=== PATIENT | female | born 1985 | race Caucasian/White ===

== ENCOUNTER 2025-04-02 13:40 | Emergency (ER) | payer BC ==
[~2025-04-02] VITALS: Ht 165.1 cm; Wt 97.7 kg
[2025-04-02 13:50] VITALS: BP 179/106; PULSE 114; RESP 16; TEMP 98.5; O2SAT 98
--- NOTE | 2025-04-02 14:18 | Physician Documentation ---
History of Present Illness ~ Chief Complaint: Rash Stated Complaint: RASH Time Seen by MD: 14:02 OK to notify your PCP?: Yes Source: patient Mode of Arrival: POV Exam Limitations: no limitations HPI 39-year-old female with a itchy rash which started 30 minutes after holding a robe to purchase over her left forearm while she was shopping at [email or web address] 2 days ago. She has a rash also left lower leg where the strap of the road touched as well as the right wrist. She tried rinsing the rash with technu with no relief. Today she noticed that her eye was starting to become red and itching on the left side in his worry that this histamine reaction is spreading. She does take Singulair daily. She states that she is at a similar rash when exposed to poison oak. Requesting prednsone pack. Medication Reconciliation Allergies: Coded Allergies: mupirocin (Verified Allergy, Unknown, 04/02/25) Review of Systems All Other Systems at this time: Reviewed and Negative Physical Exam Vital Signs: RN Vital Signs have been reviewed: Yes, Temperature: 98.5, Source: Temporal, Heart Rate: 114, Respiratory Rate: 16, BP: 179/106, Pulse Oximetry: 98, Weight: 97.730 Oxygen Flow Rate: 0 Pulse Oximetry Reflects: adequate oxygenation Physical Exam General: Alert, no apparent distress. HEENT: PERRL, EOMI, no injection, moist mucous membranes. Neck: Full range of motion. Respiratory: Lungs clear, no respiratory distress. Chest: No accessory muscle use. Cardiovascular: Regular rate and rhythm, no murmurs. Gastrointestinal: Soft, nontender, nondistended. Bowels sounds present. Extremities: Normal range of motion, no deformity. Neurologic: Oriented x4. Psychiatric: Normal mood and affect. Skin: Normal color, warm and dry. Erythematous maculopapular rash to left forearm, right wrist and left evans, no blistering seen. Progress Results/Orders Reviewed/noted all lab results: Yes Results/Orders Vital Signs 04/02/25 13:50 Temp 98.5 Pulse 114 Resp 16 B/P (MAP) 179/106 Pulse Ox 98 O2 Flow Rate 0 Medical Decision Making Additional info obtained from: old records Findings 39-year-old female with rash after contact with the a possibly contaminated row. She states that the rash seems to be getting worse and she has not taken any Zyrtec or tried any hydrocortisone cream. She is requesting a prednisone pack because this is similar to last time she had poison oak. I gave her first-time dose of prednisone and sent a taper pack to her pharmacy as well as hydrocortisone cream for her to apply topically. We discussed that she should avoid itching as this can cause a secondary infection which would require an antibiotic. She should follow up with her primary care within the next week and return back here for new or worsening symptoms. Differential Dx:Considerations: Include: Candidiasis, Herpes zoster, Herpes simplex, Impetigo, Molluscum contagiosum, Pityriasis rosea, Psoriaisis, Scabies Departure Disposition: 01 HOME / SELF CARE / HOMELESS Impression: Primary Impression: Allergic contact dermatitis Condition: Stable Discharge Instructions: Contact Dermatitis Additional Instructions: Please refrain from itching your rash as this can cause a secondary infection which would require an antibiotic. Follow up with her primary care provider within the next week and return back here for any new or worsening symptoms. Referrals: NO PRIMARY CARE PROVIDER (PCP) Prescriptions Hydrocortisone (hydrocortisone 1% cream) 1 % Cream..g. 1 APPLIC TOP Q12H for 10 Days, #60 GM 0 Refills apply to affected area(s) Prov: FRANCES VIEIRA 04/02/25 Prednisone* (Prednisone*) 20 Mg Tablet 2 TAB PO DAILY, #18 TAB Take 2 tablets once daily for 5 days, take 1 tablet once daily for 5 days, take half tablet once daily for 5 days. Prov: FRANCES VIEIRA 04/02/25 Education Educated: Patient Educated regarding: diagnosis, treatment, prognosis, need for follow up Additional Comment Medical Screen Exam This patient recieved a medical screening examination. After reviewing the individual's medical complaints with presenting symptoms and performing an appropriate physical examination, it was determined that no immediate life- threatening emergency medical condition is present. This individual is also not a women having contractions. Signature Scribe Signature: . Attestation: Scribed for Frances Vieira by Frances Mendez NP . 04/02/25 14:20 Parts of this note were created using [email or web address] voice recognition software program. While efforts were made to correct any mistakes made by this voice recognition software program, nonsensical phrases may remain in this note. In addition, there may be errors and syntax, grammar, content and spelling. FRANCES VIEIRA [facility] Apr 02, 2025 14:18
[2025-04-02] MEDS ORDERED: HYDR28CR14 TOP (14:31)
[2025-04-02] MEDS ORDERED: PRED20TA PO (14:31)
== END 2025-04-02 14:54 | disposition home or self-care (01) ==
LOC: ER 13:42
DX: L23.7 Allergic contact dermatitis due to plants, except food (principal); Z88.1 Allergy status to other antibiotic agents; Z79.899 Other long term (current) drug therapy
CPT/HCPCS: 99283; J7512

== ENCOUNTER 2025-04-29 21:31 | Emergency (ER) | payer BC ==
[~2025-04-29] VITALS: Ht 165.1 cm; Wt 94.5 kg
[~2025-04-29 21:31] MED LIST: HYDR28CR14 TOP; PRED20TA PO
[2025-04-29 21:46] VITALS: BP 162/99; PULSE 92; RESP 16; O2SAT 98
--- NOTE | 2025-04-30 00:57 | Physician Documentation ---
History of Present Illness ~ Chief Complaint: Wrist pain Stated Complaint: WRIST PAIN Time Seen by MD: 00:17 HPI Patient presented to the emergency room for evaluation of right wrist pain. Patient has hypermobile joints and she was putting down an on and she felt a pop in her right wrist she is concerned that she may have broken her wrist or dislocated etc.. No other injuries reported Tetanus within 5 years: No Medication Reconciliation Allergies: Coded Allergies: mupirocin (Verified Allergy, Unknown, 04/29/25) Scheduled Hydrocortisone (hydrocortisone 1% cream), 1 APPLIC TOP Q12H Prednisone* (Prednisone*), 2 TAB PO DAILY Review of Systems ROS All review of systems negative except as per HPI Physical Exam Vital Signs: Temperature: 96.8, Source: Temporal, Heart Rate: 92, Respiratory Rate: 16, BP: 162/99, Pulse Oximetry: 98, Weight: 94.550 Oxygen Flow Rate: 0 Physical Exam General: Patient is awake, alert, oriented x4 in no acute distress and well appearing.~ Head: Normocephalic and atraumatic. Eyes: Conjunctival normal. EOMI. PERRL. ENT: Mucous membranes moist. Neck: Supple, trachea is midline. Chest: Clear to auscultation bilaterally without rales, rhonchi, or wheezes. Th ere is no accessory muscle use or retractions. Cardiac: RRR without murmurs, gallops, or rubs. Abd: Soft, nondistended, nontender, with normoactive bowel sounds. No guarding, rebound, or rigidity. Extremities: Left upper extremity normal, right upper extremity shows no abnormality of right shoulder or elbow. Mild discomfort with manipulation of right wrist but no deformity appreciated. Less than 2nd capillary reflex patient able to flex and extend fingers and wrist. Progress Results/Orders Results/Orders Orders - MATTHEW SCOTT MD Wrist, Complete (3vw Min) (04/30/25 00:15) Completed Orders - MATTHEW SCOTT MD Wrist, Complete (3vw Min) (04/30/25 00:15) Vital Signs 04/29/25 21:46 Temp 96.8 Pulse 92 Resp 16 B/P (MAP) 162/99 Pulse Ox 98 O2 Flow Rate 0 EKG/XRAY/CT/US/VASC/MRI Bone/Soft Tissue X-Ray (Ext.) : Additional Comment Wrist series interpreted by myself is negative for fractures, dislocations or foreign bodies Medical Decision Making Findings Patient presents to the emergency room with wrist pain as per HPI. Differentials include but are not limited to fractures, dislocations, soft tissue injury, ligamentous injury therefore x-ray was performed which was negative. Rice therapy discussed. Patient had splint placed in his neurovascularly intact status post splint placement. The need to follow up with her doctor for resolution of symptoms discussed. Departure Disposition: HOME / SELF CARE / HOMELESS Impression: Primary Impression: Wrist joint pain Condition: Stable Discharge Instructions: Wrist Pain, Adult Referrals: NO PRIMARY CARE PROVIDER (PCP) Education Educated: Patient Educated regarding: diagnosis, treatment, need for follow up Signature Scribe Signature: No scribe Attestation: The note accurately reflects work and decisions made by me.Matthew Scott MD 04/30/25 01:06 MATTHEW SCOTT MD Apr 30, 2025 00:57
[2025-04-30 01:16] VITALS: TEMP 96.8
--- NOTE | 2025-04-30 02:19 | RADIOLOGY REPORT ---
CLINICAL INDICATION: pain TECHNIQUE: DI WRIST, COMPLETE (3VW MIN) Comparison: None FINDINGS/IMPRESSION: : There is no evidence of acute fracture or dislocation. Soft tissues are unremarkable.
== END 2025-04-30 01:19 | disposition home or self-care (01) ==
LOC: ER 21:31
DX: M25.531 Pain in right wrist (principal); Z88.8 Allergy status to other drugs, medicaments and biological substances; X58.XXXA Exposure to other specified factors, initial encounter; Y93.89 Activity, other specified; Y92.89 Other specified places as the place of occurrence of the external cause; Y99.8 Other external cause status
CPT/HCPCS: 29125; 73110; 99283